=== PATIENT | male | born 1965 | race Caucasian/White ===

== ENCOUNTER 2019-08-29 01:44 | Emergency (ER) | payer OTHER ==
[~2019-08-29] VITALS: Ht 177.8 cm; Wt 91.6 kg
[2019-08-29 01:51] VITALS: Ht 177.8 cm; Wt 91.6 kg
[2019-08-29 05:27] LABS: BASOPHIL % 0.3 % (0-2); RED CELL DISTRIBUTION WIDTH 13.1 % (11.5-14.5)
[2019-08-29 05:37] LABS: CALCIUM 8.1 mg/dL (8.5-10.1); CARBON DIOXIDE 30.4 mmol/L (21-32); CHLORIDE SERUM 100 mmol/L (98-107); CREATININE SERUM 1.1 mg/dL (0.7-1.3); GFR1 > 60 mL/min; GLUCOSE SERUM 117 mg/dL (74-106); POTASSIUM SERUM 4.1 mmol/L (3.5-5.1); SODIUM SERUM 138 mmol/L (136-145)
[2019-08-29 06:11] LABS: PLATELET COUNT 126 x10^3mcL (130-400)
[2019-08-29 06:25] VITALS: BP 116/72
== END 2019-08-29 06:25 | disposition home or self-care (01) ==
LOC: ED 01:44
PROVIDERS: Emergency Medicine
DX: R11.2 Nausea with vomiting, unspecified (principal); E78.00 Pure hypercholesterolemia, unspecified
CPT/HCPCS: 36415; J8597